=== PATIENT | female | born 1945 | race African-American/Black ===

== ENCOUNTER 2022-08-08 15:46 | Emergency (ER) | payer OTHER ==
[~2022-08-08] VITALS: Ht 152.4 cm; Wt 81.6 kg
[2022-08-08] MEDS ORDERED: HYDR25TA4 PO (15:57)
[2022-08-08] MEDS ORDERED: ASPI81TA31 PO (15:57)
[2022-08-08] MEDS ORDERED: LEVO25TA9 PO (15:57)
[2022-08-08 16:19] LABS: MEAN CORPUSCULAR HEMOGLOBIN 28.6 uug (24.7-32.8); MEAN CORPUSCULAR VOLUME 90.6 fL (75.5-95.3); PLATELET COUNT (AUTO) 272 K/uL (179-408)
[2022-08-08 16:33] LABS: CARBON DIOXIDE 31 mmol/L (21-32); CHLORIDE 100 mmol/L (98-107); CREATININE 1.2 mg/dL (0.6-1.3); GLUCOSE 156 mg/dL (74-106); POTASSIUM 4.1 mmol/L (3.5-5.1); UREA NITROGEN, BLOOD 33 mg/dL (7-18)
[2022-08-08 16:43] LABS: ALANINE AMINOTRANSFERASE 8 U/L (14-59); ALKALINE PHOSPHATASE 111 U/L (50-136); ASPARTATE AMINOTRANSFERASE < 5 U/L (15-37); BILIRUBIN,DIRECT 0.1 mg/dL (0.0-0.2); BILIRUBIN,TOTAL 0.4 mg/dL (0.2-1.0); TOTAL PROTEIN, SERUM 6.8 g/dL (6.4-8.2)
--- NOTE | 2022-08-08 17:00 | NUR ---
Patient resting in bed comfortably with relative at the bedside. 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
--- NOTE | 2022-08-08 17:29 | NUR ---
Patient does not wish to proceed with medical care recommended by Dr. Finnegan. Patient given information related to possible complications, up to and including , which could occur as a result of leaving the hospital at this time. Patient verbalizes understanding of risks involved due to leaving against medical advice. Patient has signed AMA form.
--- NOTE | 2022-08-08 17:35 | NUR ---
Patient changed mind about going AMA.
--- NOTE | 2022-08-08 17:41 | NUR ---
Spoke with Delia from [facility] who opened a case for patient. Stated that Faizan Lopez will call back for doctor to doctor.
--- NOTE | 2022-08-08 19:30 | NUR ---
Spoke with Emor from [facility], [facility] transport eta [id number].
--- NOTE | 2022-08-08 20:15 | NUR ---
All [facility] ALS transport personnel have arrived.
--- NOTE | 2022-08-08 20:29 | NUR ---
Report given to ALLISON Cerna from [facility] ER to ER transfer.
--- NOTE | 2022-08-08 20:40 | NUR ---
Patient left with ALS tranport.
== END 2022-08-08 20:40 | disposition short-term general hospital (02) ==
LOC: ER 15:46
DX: R55 Syncope and collapse (principal); Z79.82 Long term (current) use of aspirin; Z79.890 Hormone replacement therapy; J45.909 Unspecified asthma, uncomplicated; Z88.0 Allergy status to penicillin
CPT/HCPCS: 36415; 71045; 83735; 84484; 85025; 93005; A4663